=== PATIENT | female | born 1975 | race Two or more races ===

== ENCOUNTER 2018-01-02 12:44 | Outpatient (CLI) | payer OTHER | END 2018-01-02 12:50 | disposition home or self-care (01) | LOC: RAD 12:44 | DX: R05 Cough (principal) ==

== ENCOUNTER → 2018-06-27 | Outpatient (CLI) | payer OTHER | END | disposition home or self-care (01) | LOC: RAD 501 09:57 | DX: M25.552 Pain in left hip (principal); M25.572 Pain in left ankle and joints of left foot ==